=== PATIENT | male | born 1955 | race Caucasian/White ===

== ENCOUNTER 2018-10-22 09:12 | Emergency (ER) | payer OTHER ==
--- NOTE | 2018-10-22 09:22 | EDPHY ---
H & P Stated Complaint: Sudden L testicle/LLQ/L flank pn 0400. Diarrhea s blood x1. Time Seen by Provider: 10/22/18 09:22 - Personal History Current Tetanus/Diphtheria Vaccine: Yes - Medical/Surgical History Hx Asthma: No Hx Chronic Respiratory Disease: No Hx Diabetes: Yes Hx Cardiac Disease: Yes Hx Renal Disease: No Hx Cirrhosis: No Hx Alcoholism: No Hx HIV/AIDS: No Hx Splenectomy or Spleen Trauma: No Other PMH: Cardiac trip bypass, NIDDM, tonsillectomy - Social History Smoking Status: Never smoked Constitutional: Initial Vital Signs Heart Rate 65 10/22/18 09:16 Respiratory Rate 18 10/22/18 09:16 Blood Pressure 148/89 H 10/22/18 09:16 O2 Sat (%) 96 10/22/18 09:16 O2 Delivery Mode Room Air Allergies/Adverse Reactions: No Known Allergies Allergy (Unverified 10/22/18 09:16) Home Medications: Medication Instructions Recorded Ondansetron Odt [Zofran Odt 4 mg 4 mg PO Q4 PRN #10 tab 10/22/18 (RX)] Tamsulosin HCl [Flomax 0.4 MG (*)] 0.4 mg PO DAILY #10 cap 10/22/18 oxyCODONE IR [Oxycodone Ir (*)] 5 - 10 mg PO Q6 PRN #20 tab 10/22/18 Medical Decision Making - Diagnostics Imaging Results: Imaging Impressions Abdomen/Pelvis CT 10/22/18 09:40 Impression: 1. Bilateral nephrolithiasis, with a 9 x 9 mm stone at the caudal left renal pelvis resulting in moderate obstructive uropathy. 2. Bibasilar bronchiectasis, left greater than right, with minimal subpleural fibrosis and some subsegmental atelectasis versus scar and/or mucous plugging in the left lower lobe. Follow-up CT reevaluation in 6 months is suggested. Attention: This CT examination is specifically designed to evaluate patients who are clinically suspected of having acute obstructive uropathy. This examination does not use radiographic contrast, and as such, provides only a limited evaluation of the abdomen, pelvis, and retroperitoneum. If there is further clinical suspicion for pathological conditions other than obstructive uropathy, a complete CT evaluation of the abdomen and pelvis utilizing intravenous, oral, and rectal contrast should be considered. Findings and recommendations were discussed with Sushil Leary MD at 10:39, on 10/22/2018. Imaging: Discussed imaging studies w/ call specialist Radiologist, I viewed and interpreted images myself ED Course/Re-evaluation: CHIEF COMPLAINT: Left flank pain HISTORY OF PRESENT ILLNESS: The patient is a 62 y/o male with a history of kidney stones, diabetes and a triple bypass complaining of left flank, abdomen, and testicular pain onset at 04:00, 5.5 hours ago. This pain woke him up from sleep and is worsening. This pain does feel similar to prior kidney stones. No fever, headache, body aches, lightheadedness, chest pain, heart palpitations, shortness of breath, cough, urinary complaints, numbness, paresthesias. REVIEW OF SYSTEMS: A comprehensive 10 system review of systems is otherwise negative aside from elements mentioned in the history of present illness and medical decision making. PHYSICAL EXAM: HR, BP, O2 Sat, RR. Temp noted General Appearance: Alert, well hydrated, appropriate, and non-toxic appearing. Head: Atraumatic without scalp tenderness or obvious injury Eyes: Pupils equal, round, reactive to light and accommodation, EOMI, no trauma , no injection. Ears: Clear bilaterally, no perforation, normal landmarks Nose: Atraumatic, no rhinorrhea, clear. Throat: There is no erythema or exudates, no lesions, normal tonsils, mucus membranes moist. Neck: Supple, 2+ carotid upstroke, nontender, no lymphadenopathy. Respiratory: No retractions, no distress, no wheezes, and no accessory muscle use. Lungs are clear to auscultation bilaterally. Cardiovascular: Regular rate and rhythm, no murmurs, rubs, or gallops. Bilateral carotid, radial, dorsalis pedis, and posterior tibial pulses intact. Good capillary refill all extremities. Gastrointestinal: Abdomen is soft, nontender, non-distended, no masses, no rebound, no guarding, no peritoneal signs. Back: Left CVA tenderness to palpation. Musculoskeletal: Normal active ROM of all extremities, atraumatic. Neurological: Alert, appropriate, and interactive. The patient has normal DTRs and non-focal cranial nerves, motor, sensory, and cerebellar exam. Skin: No rashes, good turgor, no nodules on palpation. Past medical history: NIDDM, kidney stone Past surgical history: Cardiac triple bypass and tonsillectomy Family history: Denies Social history: Lives in [place], , self-employed DIAGNOSTICS/PROCEDURES/CRITICAL CARE TIME: Abdominopelvic CT: 9x9mm left kidney stone in distal third of the ureter. DIFFERENTIAL DIAGNOSIS: The differential diagnosis for the patient's flank pain included but was not limited to musculoskeletal causes, kidney stone, pyelonephritis, shingles, diverticulitis, appendicitis, and aortic aneurysm. MEDICAL DECISION MAKING: The patient is a 62 y/o male with a history of kidney stones, diabetes and a triple bypass presenting with left flank, abdomen, and testicular pain onset at 04:00, 5.5 hours ago. On exam he has left CVA tenderness to palpation. Labs and abdominopelvic CT ordered; 1L IV NS, 30mg IV Toradol, 1mg IV Dilaudid, 4mg IV Zofran, and 0.4mg PO Flomax administered. 1035: I reviewed patient's UA which reveals hematuria without signs of infection. Imaging studies still pending. 1040: I spoke with Dr. Platt, radiologist, regarding patient's abdominopelvic CT which reveals a 9x9mm left kidney stone. I will page urology. 1048: I consulted with Dr. Ovalles, urologist, regarding patient. Dr. Ovalles recommends discharging the patient and having him follow up as an outpatient. 1055: Reassessed patient and discussed imaging and laboratory studies as well as my consultation with Dr. Ovalles. I have advised him to take Flomax, OxyIR and Zofran for his symptoms. Return precautions provided; patient is comfortable with this plan. - Data Points Laboratory Results: Laboratory Results 10/22/18 09:31 10/22/18 09:31 10/22/18 10/22/18 10/22/18 10:05 09:31 09:31 WBC 6.03 10^3/uL 10^3/uL (3.80-9.50) RBC 4.58 10^6/uL 10^6/uL (4.40-6.38) Hgb 14.8 g/dL g/dL (13.7-17.5) Hct 42.6 % % (40.0-51.0) MCV 93.0 fL fL (81.5-99.8) MCH 32.3 pg pg (27.9-34.1) MCHC 34.7 g/dL g/dL (32.4-36.7) RDW 12.4 % % (11.5-15.2) Plt Count 140 10^3/uL L 10^3/uL (150-400) MPV 11.1 fL fL (8.7-11.7) Neut % (Auto) 45.7 % % (39.3-74.2) Lymph % (Auto) 44.9 % % (15.0-45.0) [place] % (Auto) 6.1 % % (4.5-13.0) Eos % (Auto) 2.5 % % (0.6-7.6) Baso % (Auto) 0.5 % % (0.3-1.7) Nucleat RBC Rel Count 0.0 % % (0.0-0.2) Absolute Neuts (auto) 2.75 10^3/uL 10^3/uL (1.70-6.50) Absolute Lymphs (auto) 2.71 10^3/uL 10^3/uL (1.00-3.00) Absolute Monos (auto) 0.37 10^3/uL 10^3/uL (0.30-0.80) Absolute Eos (auto) 0.15 10^3/uL 10^3/uL (0.03-0.40) Absolute Basos (auto) 0.03 10^3/uL 10^3/uL (0.02-0.10) Absolute Nucleated RBC 0.00 10^3/uL 10^3/uL (0-0.01) Immature Gran % 0.3 % % (0.0-1.1) Immature Gran # 0.02 10^3/uL 10^3/uL (0.00-0.10) Sodium 138 mEq/L mEq/L (135-145) Potassium 4.1 mEq/L mEq/L (3.5-5.2) Chloride 102 mEq/L mEq/L (97-110) Carbon Dioxide 26 mEq/l mEq/l (22-31) Anion Gap 10 mEq/L mEq/L (6-14) BUN 16 mg/dL mg/dL (7-23) Creatinine 1.0 mg/dL mg/dL (0.7-1.3) Estimated GFR > 60 Glucose 204 mg/dL H mg/dL (70-100) Calcium 9.7 mg/dL mg/dL (8.5-10.4) Urine Color [place] Urine Appearance MODERATELY TURBID Urine pH 5.0 (5.0-7.5) Ur Specific [place] 1.025 (1.002-1.030) Urine Protein 2+ H (NEGATIVE) Urine Ketones NEGATIVE (NEGATIVE) Urine Blood 3+ H (NEGATIVE) Urine Nitrate NEGATIVE (NEGATIVE) Urine Bilirubin NEGATIVE (NEGATIVE) Urine Urobilinogen 2.0 EU H EU (0.2-1.0) Ur Leukocyte Esterase NEGATIVE (NEGATIVE) Urine RBC 50-182 /hpf H /hpf (0-3) Urine WBC 10-15 /hpf H /hpf (0-3) Ur Epithelial Cells TRACE /lpf /lpf (NONE-1+) Urine Bacteria 1+ /hpf H /hpf (NONE SEEN) Hyaline Casts 1-5 /lpf /lpf (0-1) Urine Mucus 4+ /lpf H /lpf (NONE-1+) Urine Glucose NEGATIVE (NEGATIVE) Medications Given: Discontinued Medications Hydromorphone HCl (Dilaudid) 1 mg IVP EDNOW ONE Stop: 10/22/18 09:42 Last Admin: 10/22/18 10:17 Dose: 1 mg Sodium Chloride (Ns) 1,000 mls @ 0 mls/hr IV ONCE ONE; Wide Open PRN Reason: Protocol Stop: 10/22/18 09:41 Last Admin: 10/22/18 10:18 Dose: 1,000 mls Ketorolac Tromethamine (Toradol) 30 mg IVP EDNOW ONE Stop: 10/22/18 09:41 Last Admin: 10/22/18 09:59 Dose: 30 mg Ondansetron HCl (Zofran) 4 mg IVP EDNOW ONE Stop: 10/22/18 09:41 Last Admin: 10/22/18 10:00 Dose: 4 mg Tamsulosin HCl (Flomax) 0.4 mg PO EDNOW ONE Stop: 10/22/18 09:45 Last Admin: 10/22/18 10:02 Dose: 0.4 mg Departure - Departure Disposition: Home, Routine, Self-Care Clinical Impression: Kidney stone on left side Condition: Good Instructions: Kidney Stones (ED), How to Strain Your Urine (ED) Additional Instructions: 1. Take Zofran, OxyIR, and Flomax as prescribed. 2. Followup with your urologist within one week. 3. Return to the emergency apartment for fever, severe pain, inability to urinate or other concerns. 4. Strain urine to try and catch the kidney stone and bring this to the urology appointment. Referrals: Sarah Ewing MD [Primary Care Provider] - As per Instructions Aric Ovalles MD [Medical Doctor] - As per Instructions Prescriptions: Ondansetron Odt [Zofran Odt 4 mg (RX)] 4 mg PO Q4 PRN #10 tab PRN Reason: Nausea/Vomiting, Use 1st oxyCODONE IR [Oxycodone Ir (*)] 5 - 10 mg PO Q6 PRN #20 tab PRN Reason: Pain, Severe Tamsulosin HCl [Flomax 0.4 MG (*)] 0.4 mg PO DAILY #10 cap Report Scribed for: Sushil Leary Report Scribed by: Brittaney Vaz Date of Report: 10/22/18 Time of Report: 09:25
[2018-10-22] MEDS ORDERED: ONDANSETRON 4 MG/2 ML VIAL IVP ONE (09:40)
[2018-10-22] MEDS ORDERED: KETOROLAC 30 MG/1 ML SDV IVP ONE (09:40)
[2018-10-22] MEDS ORDERED: NS 1,000 ML IV ONE (09:40)
[2018-10-22] MEDS ORDERED: HYDROmorphONE/DILAUDID 2 MG/ML INJ IVP ONE (09:41)
[2018-10-22] MEDS ORDERED: TAMSULOSIN HCL 0.4 MG CAP PO ONE (09:44)
[2018-10-22] MEDS ORDERED: HYDROmorphONE/DILAUDID 1 MG/ML INJ ONE (09:52)
[2018-10-22 10:08] LABS: PLATELET COUNT 140 10^3/uL (150-400)
[2018-10-22 11:22] VITALS: BP 125/75
== END 2018-10-22 11:22 | disposition home or self-care (01) ==
DX: N20.0 Calculus of kidney (principal); E86.9 Volume depletion, unspecified; Z87.442 Personal history of urinary calculi; E11.9 Type 2 diabetes mellitus without complications; Z95.5 Presence of coronary angioplasty implant and graft
CPT/HCPCS: 96374; J1170; J1885; J2405

== ENCOUNTER 2018-10-25 13:49 | Observation (INO) | payer OTHER ==
[2018-10-25] MEDS ORDERED: NS 1,000 ML IV ONE (13:57)
--- NOTE | 2018-10-25 13:57 | EDPHY ---
H & P Stated Complaint: left flank pain Time Seen by Provider: 10/25/18 13:57 HPI/ROS: HPI CHIEF COMPLAINT: Worsening left flank pain. Nausea. HISTORY OF PRESENT ILLNESS: Patient very pleasant 62-year-old male, recently in the emergency room with left flank pain. Patient reports that he was seen here 2 days ago and diagnosed with a kidney stone in his left kidney. States that he had at period of time that he was pain-free however today woke up with worsening left flank pain associated nausea. He took oxycodone at home as well as Flomax however this did not help. He arrives to emergency room complaining of 10/10 left flank pain. Associated nausea but no vomiting. Patient denies any chest pain or shortness of breath. Denies fever. I was able to review the patient's CT scan recently shows a rather large left- sided kidney stone. Past Medical History: Significant medical history for coronary artery disease, [id number] diabetic. Past Surgical History: CABG Social History: Denies drugs alcohol tobacco. Family History: Noncontributory ROS REVIEW OF SYSTEMS: 10 Systems were reviewed and negative with the exception of the elements mentioned in the history of present illness. Exam Constitutional triage nursing summary reviewed, vital signs reviewed, awake/ alert. Eyes normal conjunctivae and sclera, EOMI, PERRLA. HENT normal inspection, atraumatic, moist mucus membranes, no epistaxis, neck supple/ no meningismus, no raccoon eyes. Respiratory clear to auscultation bilaterally, normal breath sounds, no respiratory distress, no wheezing. Cardiovascular rate normal, regular rhythm, no murmur, no edema, distal pulses normal. Gastrointestinal soft, non-tender, no rebound, no guarding, normal bowel sounds, no distension, no pulsatile mass. Genitourinary no CVA tenderness. Musculoskeletal no midline vertebral tenderness, full range of motion, no calf swelling, no tenderness of extremities, no meningismus, good pulses, neurovascularly intact. Skin pink, warm, & dry, no rash, skin atraumatic. Neurologic awake, alert and oriented x 3, AAOx3, moves all 4 extremities equally, motor intact, sensory intact, CN II-XII intact, normal cerebellar, normal vision, normal speech. Psychiatric normal mood/affect. Heme/Lymph/Immune no lymphadenopathy. Differential Diagnosis: Differential diagnosis includes but is not limited to and in no particular order: Bowel obstruction, appendicitis, gallbladder disease, diverticulitis, colitis, enteritis, perforated viscus, gastritis, GERD , esophagitis, urinary tract infection, pyelonephritis, kidney stones Medical Decision Making: Plan for this patient IV establishment IV fluid bolus , IV Dilaudid 1 mg for pain control IV Zofran for nausea, basic labs, urinalysis review his old ER record and CT. Patient may need to be admitted to the hospital for pain control. Re-evaluation: Patient re-evaluated 1604 pain is well controlled now with IV Dilaudid however the patient has a 9 x 9 mm stone obstructing on the left side according to his CT scan a few days ago. Plan for patient hospital admission for pain control nausea control IV fluids. Also I will consult Urology. Urinalysis reviewed no signs of infection Creatinine normal. 1608: I have consult Urology. They will plan to see and evaluate the patient. Additionally consult the hospitalist service Dr. Valentin will see and eval/ admit patient. Source: Patient - Personal History Current Tetanus/Diphtheria Vaccine: Yes Current Tetanus Diphtheria and Acellular Pertussis (TDAP): Yes - Medical/Surgical History Hx Asthma: No Hx Chronic Respiratory Disease: No Hx Diabetes: Yes Hx Cardiac Disease: Yes Hx Renal Disease: No Hx Cirrhosis: No Hx Alcoholism: No Hx HIV/AIDS: No Hx Splenectomy or Spleen Trauma: No Other PMH: Cardiac trip bypass, NIDDM, tonsillectomy - Social History Smoking Status: Never smoked Constitutional: Initial Vital Signs Temperature (C) 37 C 10/25/18 13:53 Heart Rate 67 10/25/18 13:53 Blood Pressure 149/65 H 10/25/18 13:53 O2 Sat (%) 97 10/25/18 13:53 O2 Delivery Mode Nasal Cannula O2 (L/minute) 2 Allergies/Adverse Reactions: No Known Allergies Allergy (Verified 10/25/18 15:27) Home Medications: Medication Instructions Recorded Ondansetron Odt [Zofran Odt 4 mg 4 mg PO Q4 PRN #10 tab 10/22/18 (*)] Tamsulosin HCl [Flomax 0.4 MG (*)] 0.4 mg PO DAILY #10 cap 10/22/18 oxyCODONE IR [Oxycodone Ir (*)] 5 - 10 mg PO Q6 PRN #20 tab 10/22/18 Allopurinol [Allopurinol 300 MG 150 mg PO HS 10/25/18 (RX)] Aspirin [Aspirin 81mg (*)] 81 mg PO HS 10/25/18 Atorvastatin Calcium [Lipitor 40 40 mg PO HS 10/25/18 mg (*)] Carvedilol [Coreg (*)] 6.25 mg PO BIDMEAL 10/25/18 Lisinopril [Zestril 2.5 mg (*)] 2.5 mg PO DAILY 10/25/18 metFORMIN HCL [Glucophage 500 mg 500 mg PO BIDMEAL 10/25/18 (*)] Medical Decision Making - Data Points Laboratory Results: Laboratory Results 10/25/18 11:40 10/25/18 11:40 Medications Given: Discontinued Medications Acetaminophen (Tylenol) 650 mg PO Q4HRS PRN PRN Reason: Pain, Mild/Fever, Can Take PO Stop: 04/23/19 16:57 Last Admin: 10/26/18 08:12 Dose: 650 mg Allopurinol (Allopurinol) 150 mg PO HS [facility] Stop: 04/23/19 20:59 Last Admin: 10/25/18 21:14 Dose: 150 mg Aspirin (Aspirin) 81 mg PO HS [facility] Stop: 04/23/19 20:59 Last Admin: 10/25/18 21:15 Dose: 81 mg Atorvastatin Calcium (Lipitor) 40 mg PO HS [facility] Stop: 04/23/19 20:59 Last Admin: 10/25/18 21:15 Dose: 40 mg Carvedilol (Coreg) 6.25 mg PO BIDMEAL [facility] Stop: 04/23/19 17:59 Last Admin: 10/26/18 08:12 Dose: 6.25 mg Hydromorphone HCl (Dilaudid) 1 mg IVP EDNOW ONE Stop: 10/25/18 14:02 Last Admin: 10/25/18 14:13 Dose: 1 mg Hydromorphone HCl (Dilaudid) 0.2 - 0.4 mg IVP Q4HRS PRN PRN Reason: Pain, Breakthrough Stop: 11/04/18 16:57 Last Admin: 10/26/18 12:05 Dose: 0.4 mg Sodium Chloride (Ns) 1,000 mls @ 0 mls/hr IV EDNOW ONE; Wide Open PRN Reason: Protocol Stop: 10/25/18 13:58 Last Admin: 10/25/18 14:13 Dose: 1,000 mls Sodium Chloride (Ns) 1,000 mls @ 100 mls/hr IV CONT STEPHON Stop: 04/23/19 16:59 Last Admin: 10/25/18 21:15 Dose: 1,000 mls Cefazolin Sodium/Dextrose (Ancef) 100 mls @ 200 mls/hr IV ONCALL ONE PRN Reason: Protocol Stop: 10/26/18 14:27 Last Admin: 10/26/18 15:13 Dose: 100 mls Lactated Ringer's (Lr) 1,000 mls @ 0 mls/hr IV ONCE ONE PRN Reason: KVO Stop: 10/26/18 14:32 Last Admin: 10/26/18 14:49 Dose: 1,000 mls Insulin Human Lispro (Humalog Lispro) 0 unit SC TIDMEAL STEPHON PRN Reason: Protocol Stop: 04/23/19 17:59 Last Admin: 10/26/18 12:45 Dose: Not Given Iopamidol (Isovue-M 300) Confirm Administered Dose 15 ml .ROUTE .STK-MED ONE Stop: 10/26/18 14:47 Last Admin: 10/26/18 15:33 Dose: 15 ml Lisinopril (Zestril) 2.5 mg PO DAILY [facility] Stop: 04/24/19 08:59 Last Admin: 10/26/18 11:25 Dose: Not Given Ondansetron HCl (Zofran) 4 mg IVP EDNOW ONE Stop: 10/25/18 14:02 Last Admin: 10/25/18 14:13 Dose: 4 mg Tamsulosin HCl (Flomax) 0.4 mg PO DAILY [facility] Stop: 04/24/19 08:59 Last Admin: 10/26/18 08:12 Dose: 0.4 mg Departure - Departure Disposition: [facility] Clinical Impression: Flank pain, Kidney stone on left side Condition: Fair
[2018-10-25] MEDS ORDERED: ONDANSETRON 4 MG/2 ML VIAL IVP ONE (14:01)
[2018-10-25] MEDS ORDERED: HYDROmorphONE/DILAUDID 2 MG/ML INJ IVP ONE (14:01)
[2018-10-25 14:21] LABS: PLATELET COUNT 146 10^3/uL (150-400)
[2018-10-25] MEDS ORDERED: ONDANSETRON 4 MG/2 ML VIAL IVP PRN (16:58)
[2018-10-25] MEDS ORDERED: LORazepam 2 MG/ML INJ IVP PRN (16:58)
[2018-10-25] MEDS ORDERED: oxyCODONE IR 5 MG TAB PO PRN (16:58)
[2018-10-25] MEDS ORDERED: ONDANSETRON DISINTEGRATING 4 MG TAB PO PRN (16:58)
[2018-10-25] MEDS ORDERED: ACETAMINOPHEN 325 MG TAB PO PRN (16:58)
[2018-10-25] MEDS ORDERED: NS 1,000 ML IV SCH (17:00)
--- NOTE | 2018-10-25 17:12 | PDGENHP ---
History and Physical - Chief Complaint left sided pain - History of Present Illness 62yo M with history of diabetes, CAD s/p CABG w/ICM, remote kidney stone presents with left sided pain. Symptoms initially started 3 days ago with vague cramping sensation in LLQ/left groin. No urinary symptoms. Came to ED due to the pain. Non-contrasted abdominal CT at that time showed 9x9mm stone at the left renal pelvis resulting in moderate obstructive uropathy. He was started on flomax and discharged with oxycodone and zofran. His symptoms persisted for a day after the ED visit but then had seemingly resolved yesterday. However, today these symptoms returned to he came back to the ED. He denies any fevers or chills. He has been straining his urine and hasn't seen the stone. No gross blood in urine. He received a dose of IV dilaudid in the ED and his symptoms are currently controlled. He is being admitted for pain control and urology consultation. Case discussed with ED physician Fan Walton. History Information - Allergies/Home Medication List Allergies/Adverse Reactions: No Known Allergies Allergy (Verified 10/25/18 15:27) Home Medications: Allopurinol [Allopurinol 300 MG (RX)] 150 mg PO HS 10/25/18 [Last Taken 10/24/18 ] Aspirin [Aspirin 81mg (*)] 81 mg PO HS 10/25/18 [Last Taken 10/24/18] Atorvastatin Calcium [Lipitor 40 mg (*)] 40 mg PO HS 10/25/18 [Last Taken ] Carvedilol [Coreg (*)] 6.25 mg PO BIDMEAL 10/25/18 [Last Taken 10/25/18 06:30] Lisinopril [Zestril 2.5 mg (*)] 2.5 mg PO DAILY 10/25/18 [Last Taken 10/25/18] metFORMIN HCL [Glucophage 500 mg (*)] 500 mg PO BIDMEAL 10/25/18 [Last Taken 06:30] I have personally reviewed and updated: family history, medical history, social history, surgical history - Past Medical History Additional medical history: CAD w/ICM (LVEF 43%), non-insulin dependent diabetes , gout, HLD, mitral regurgitation, kidney stone in 1987 - Surgical History Additional surgical history: coronary stent in 2005, CABG in 2016 - Family History Additional family history: diabetes, CVA, HTN - Social History Smoking Status: Never smoked Alcohol Use: Rarely Drug Use: None Additional social history: Lives with , who is at bedside. Has 2 children. Review of Systems Review of Systems: ROS: 10pt was reviewed & negative except for what was stated in HPI & below Physical Exam Physical Exam: Temp Pulse Resp BP Pulse Ox 37 C 68 16 158/80 H 97 10/25/18 13:53 10/25/18 15:25 10/25/18 15:25 10/25/18 15:25 10/25/18 15:25 Constitutional: no apparent distress, appears nourished, not in pain Eyes: PERRL, anicteric sclera, EOMI Ears, Nose, Mouth, Throat: moist mucous membranes, hearing normal, ears appear normal, no oral mucosal ulcers Cardiovascular: regular rate and rhythym, systolic murmur, No JVD, No edema Respiratory: no respiratory distress, no rales or rhonchi, clear to auscultation Gastrointestinal: normoactive bowel sounds, soft, non-tender abdomen, no palpable masses Genitourinary: no bladder fullness, no bladder tenderness Skin: warm, normal color, no rashes or abrasions, no fluctuance, no induration, No mottled Musculoskeletal: full muscle strength, no muscle tenderness, normal joint ROM, no joint effusions Neurologic: AAOx3 Psychiatric: interacting appropriately, not anxious, not encephalopathic, thought process linear Lab Data & Imaging Review 10/25/18 11:40 10/25/18 11:40 WBC 9.36 10^3/uL (3.80-9.50) 10/25/18 11:40 RBC 4.54 10^6/uL (4.40-6.38) 10/25/18 11:40 Hgb 15.0 g/dL (13.7-17.5) 10/25/18 11:40 Hct 42.2 % (40.0-51.0) 10/25/18 11:40 MCV 93.0 fL (81.5-99.8) 10/25/18 11:40 MCH 33.0 pg (27.9-34.1) 10/25/18 11:40 MCHC 35.5 g/dL (32.4-36.7) 10/25/18 11:40 RDW 12.2 % (11.5-15.2) 10/25/18 11:40 Plt Count 146 10^3/uL (150-400) L 10/25/18 11:40 MPV 10.7 fL (8.7-11.7) 10/25/18 11:40 Neut % (Auto) 59.9 % (39.3-74.2) 10/25/18 11:40 Lymph % (Auto) 31.7 % (15.0-45.0) 10/25/18 11:40 [place] % (Auto) 7.2 % (4.5-13.0) 10/25/18 11:40 Eos % (Auto) 0.7 % (0.6-7.6) 10/25/18 11:40 Baso % (Auto) 0.3 % (0.3-1.7) 10/25/18 11:40 Nucleat RBC Rel Count 0.0 % (0.0-0.2) 10/25/18 11:40 Absolute Neuts (auto) 5.60 10^3/uL (1.70-6.50) 10/25/18 11:40 Absolute Lymphs (auto) 2.97 10^3/uL (1.00-3.00) 10/25/18 11:40 Absolute Monos (auto) 0.67 10^3/uL (0.30-0.80) 10/25/18 11:40 Absolute Eos (auto) 0.07 10^3/uL (0.03-0.40) 10/25/18 11:40 Absolute Basos (auto) 0.03 10^3/uL (0.02-0.10) 10/25/18 11:40 Absolute Nucleated RBC 0.00 10^3/uL (0-0.01) 10/25/18 11:40 Immature Gran % 0.2 % (0.0-1.1) 10/25/18 11:40 Immature Gran # 0.02 10^3/uL (0.00-0.10) 10/25/18 11:40 Sodium 137 mEq/L (135-145) 10/25/18 11:40 Potassium 3.6 mEq/L (3.5-5.2) 10/25/18 11:40 Chloride 100 mEq/L (97-110) 10/25/18 11:40 Carbon Dioxide 26 mEq/l (22-31) 10/25/18 11:40 Anion Gap 11 mEq/L (6-14) 10/25/18 11:40 BUN 15 mg/dL (7-23) 10/25/18 11:40 Creatinine 1.1 mg/dL (0.7-1.3) 10/25/18 11:40 Estimated GFR > 60 10/25/18 11:40 Glucose 161 mg/dL (70-100) H 10/25/18 11:40 Calcium 9.9 mg/dL (8.5-10.4) 10/25/18 11:40 Urine Color YELLOW 10/25/18 15:25 Urine Appearance CLEAR 10/25/18 15:25 Urine pH 5.0 (5.0-7.5) 10/25/18 15:25 Ur Specific [place] 1.015 (1.002-1.030) 10/25/18 15:25 Urine Protein 1+ (NEGATIVE) H 10/25/18 15:25 Urine Ketones 1+ (NEGATIVE) H 10/25/18 15:25 Urine Blood 3+ (NEGATIVE) H 10/25/18 15:25 Urine Nitrate NEGATIVE (NEGATIVE) 10/25/18 15:25 Urine Bilirubin NEGATIVE (NEGATIVE) 10/25/18 15:25 Urine Urobilinogen NEGATIVE EU (0.2-1.0) 10/25/18 15:25 Ur Leukocyte Esterase NEGATIVE (NEGATIVE) 10/25/18 15:25 Urine RBC 50-182 /hpf (0-3) H 10/25/18 15:25 Urine WBC 1-3 /hpf (0-3) 10/25/18 15:25 Ur Epithelial Cells TRACE /lpf (NONE-1+) 10/25/18 15:25 Urine Mucus TRACE /lpf (NONE-1+) 10/25/18 15:25 Urine Glucose NEGATIVE (NEGATIVE) 10/25/18 15:25 Assessment & Plan Assessment: 62yo M with history of diabetes, CAD s/p CABG w/ICM presents with left flank pain related to large kidney stone. Plan: #Left sided nephrolithiasis: Measuring 9x9mm. Does not have signs of urosepsis or renal insufficiency. - IV dilaudid q2h PRN - IVF, anti-emetics - Flomax - Urology consulted in ED, planning on ureteroscopy and laser lithotripsy tomorrow PM #CAD s/p CABG in 2016: No recent anginal symptoms. - Continue aspirin, statin, carvedilol #Ischemic cardiomyopathy: He is compensated from a volume stand point. - Continue beta feroz, lisinopril #Bibasilar atelectasis/bronchiectasis: Noted on CT - Incentive spirometry; repeat CT in 6 months #Diabetes: A1c 7.7% - Holding metformin. ACHS glucose checks, SSI VTE ppx: SCDs Diet: cardiac, NPO at midnight Code: full Dispo: Admit under observation
[2018-10-25] MEDS ORDERED: D50W 25 GM/50 ML SYR IVP PRN (17:19)
--- NOTE | 2018-10-25 17:19 | PDCONSULT ---
Bodybuilder Note: Asked to see this 62 year old man by the emergency department with a new diagnosis of left renal stone with obstruction. The patient gives a history of a renal stone back in the 1980s that he thinks passed on its own. No prior procedures for stones. Started with left sided flank pain and left lower quadrant pain 3 days ago. Seen in the ED at that time and underwent a CT scan that showed a 9 x 9 mm obstructing left UPJ stone with mild hydro. Also found to have a 1mm and 2 mm stones in the left kidney, also with a 5 x 6 mm stone in the right lower pole. Says that he had dry heaves, but no nausea. Denies any fever. Had a relief of some of the pain and this then recurred today. Presented to the ED with excruciating pain that has now been resolved with IV pain meds. Past Med Hx- NIDDM, CAD, s/p CABG in remote past Meds and allergies- reviewed in chart No sig past family history ROS- reviewed in chart Exam Afebrile well appearing man in no distress Breathing comfortably abd- soft, tender in left flank and left lower quadrant - nml phallus, meatus, testes Labs WBC 9.3 U/A- 3+ RBC, neg nitrite, neg WBC Imp Left UPJ stone 9x9 mm causing obstruction Rec Admit to hospital for continued pain care Will try to add to the schedule for left ureteroscopy and laser lithotripsy for tomorrow afternoon OK to eat at present NPO after midnight EKG in ED Thanks for the consultation
[2018-10-25] MEDS: CARVEDILOL 6.25 MG TAB PO SCH (20:08)
[2018-10-25] MEDS: INSULIN LISPRO 100 UNIT/ML SC SCH (20:11)
[2018-10-25] MEDS ORDERED: ASPIRIN 81 MG CHEWABLE TAB PO SCH (21:00)
[2018-10-25] MEDS ORDERED: ALLOPURINOL 300 MG TAB PO SCH (21:00)
[2018-10-25] MEDS ORDERED: ATORVASTATIN CALCIUM 40 MG TAB PO SCH (21:00)
[2018-10-25] MEDS: HYDROmorphONE/DILAUDID 1 MG/ML INJ IVP PRN (21:19)
[2018-10-26 05:30] LABS: PLATELET COUNT 124 10^3/uL (150-400)
[2018-10-26] MEDS: INSULIN LISPRO 100 UNIT/ML SC SCH ×2 (08:01→12:45)
[2018-10-26] MEDS: CARVEDILOL 6.25 MG TAB PO SCH (08:12)
--- NOTE | 2018-10-26 08:52 | ASMTCMCOM ---
CM Note CM Note Notes: Chart Reviewed. Pt is a 62 year old admitted with worsening nausea and left flank pain. Pt seen in the ER 2 days ago and Dx with left Kidney stone. Urology Consulted 10/25 and Pt is scheduled for a Ureteroscopy & Laser Lithotripsy this afternoon 10/26. Hx of CAD, CABG, DM. CM available for needs. PLAN:Home with [facility] when medically cleared Date Signed: 10/26/2018 08:51 AM Electronically Signed By:Taylor Montelongo
[2018-10-26] MEDS ORDERED: LISINOPRIL 2.5 MG TAB PO SCH (09:00)
[2018-10-26] MEDS ORDERED: TAMSULOSIN HCL 0.4 MG CAP PO SCH (09:00)
[2018-10-26] MEDS: HYDROmorphONE/DILAUDID 1 MG/ML INJ IVP PRN (12:05)
[2018-10-26] MEDS ORDERED: ceFAZolin 2 GM/DEXTROSE 100 ML IV ONE (13:58)
--- NOTE | 2018-10-26 14:00 | SOAPPROG ---
SOAP Progress Note Assessment/Plan: Assessment: Left renal stone left flank pain Plan: to go to OR today for left ureteroscopy, laser lithotripsy and stent placement 10/26/18 13:58 Subjective: Doing relatively well still having occasional pain requiring IV pain meds no fevers or nausea Objective: Vital Signs Temp Pulse Resp BP Pulse Ox 36.5 C 53 L 16 127/77 H 90 L 10/26/18 11:24 10/26/18 11:24 10/26/18 11:24 10/26/18 11:25 10/26/18 11:24 Laboratory Results 10/26/18 04:20 10/26/18 04:20 10/25/18 10/26/18 10/27/18 05:59 05:59 05:59 Intake Total 2400 Output Total 1200 250 Balance 1200 -250 - Pending Discharge Pending Discharge Within 24 Hours: Yes Pending Discharge Date: 10/27/18 Pending Discharge Time: 11:00 Physical Exam - Physical Exam General Appearance: alert, no apparent distress Abdomen: soft ICD10 Worksheet Patient Problems: Problems Problem Status Onset Flank pain Acute
--- NOTE | 2018-10-26 14:01 | PDHPUP ---
History & Physical Update H&P update statement: This history and physical update is based on an assessment of the patient which was completed after admission or registration (within 24 hours), but prior to the surgery/procedure. H&P update: H&P reviewed & patient examined, no change in patient's condition since H&P completed
[2018-10-26] MEDS ORDERED: LR 1,000 ML IV ONE (14:31)
[2018-10-26] MEDS ORDERED: IOPAMIDOL (ISOVUE-M 300) 15 ML VIAL ONE (14:46)
--- NOTE | 2018-10-26 15:06 | PDANEPAE ---
ANE History of Present Illness 62 yo for ureteroscopy ANE Past Medical History - Cardiovascular History Hx Hypertension: Yes Hx Arrhythmias: No Hx Chest Pain: Yes Hx Coronary Artery / Peripheral Vascular Disease: Yes Hx CHF / Valvular Disease: Yes Hx Palpitations: No Cardiovascular History Comment: s/p cabg, ef 43% - Pulmonary History Hx COPD: No Hx Asthma/Reactive Airway Disease: No Hx Recent Upper Respiratory Infection: No Hx Oxygen in Use at Home: No Hx Sleep Apnea: Yes Sleep Apnea Screening Result - Last Documented: Negative - Endocrine History Hx Diabetes: Yes - Chronic Pain History Chronic Pain: No ANE Review of Systems Review of Systems: - Exercise capacity METS (RN): 4 METS ANE Patient History - Allergies Allergies/Adverse Reactions: No Known Allergies Allergy (Verified 10/25/18 15:27) - Home Medications Home medications: home medication list seen and reviewed Home Medications: Allopurinol [Allopurinol 300 MG (RX)] 150 mg PO HS 10/25/18 [Last Taken 10/24/18 ] Aspirin [Aspirin 81mg (*)] 81 mg PO HS 10/25/18 [Last Taken 10/24/18] Atorvastatin Calcium [Lipitor 40 mg (*)] 40 mg PO HS 10/25/18 [Last Taken ] Carvedilol [Coreg (*)] 6.25 mg PO BIDMEAL 10/25/18 [Last Taken 10/25/18 06:30] Lisinopril [Zestril 2.5 mg (*)] 2.5 mg PO DAILY 10/25/18 [Last Taken 10/25/18] metFORMIN HCL [Glucophage 500 mg (*)] 500 mg PO BIDMEAL 10/25/18 [Last Taken 06:30] - NPO status NPO Status: no food or drink >8 hours NPO Since - Liquids (Date): 10/25/18 NPO Since - Liquids (Time): 23:59 NPO Since - Solids (Date): 10/25/18 NPO Since - Solids (Time): 23:59 - Smoking Hx Smoking Status: Never smoked - Alcohol Use Alcohol Use: Rarely ANE Labs/Vital Signs - Labs Result Diagrams: 10/26/18 04:20 10/26/18 04:20 - Vital Signs Blood Pressure: 144/76 Heart Rate: 70 Respiratory Rate: 16 O2 Sat (%): 94 Height: 6 ft 3 in Weight: 89.811 kg ANE Physical Exam - Airway Neck exam: FROM Mallampati Score: Class 2 Mouth exam: normal dental/mouth exam - Pulmonary Pulmonary: no respiratory distress - Cardiovascular Cardiovascular: regular rate and rhythym - ASA Status ASA Status: III ANE Anesthesia Plan Anesthesia Plan: GA w LMA
[2018-10-26] MEDS ORDERED: PROPOFOL/EMULSION 500 MG/50 ML BOTTLE IV ONE (15:12)
[2018-10-26] MEDS ORDERED: fentaNYL 100 MCG/2 ML INJ ONE (15:12)
--- NOTE | 2018-10-26 15:50 | HOSPPROG ---
Hospitalist Progress Note Assessment/Plan: 62yo M with history of diabetes, CAD s/p CABG w/ICM presents with left flank pain related to large kidney stone. Plan: #Left sided nephrolithiasis: Measuring 9x9mm. Does not have signs of urosepsis or renal insufficiency. - IV dilaudid q2h PRN - IVF, anti-emetics - Flomax - Urology consulted, planning on ureteroscopy and laser lithotripsy today #CAD s/p CABG in 2016: No recent anginal symptoms. - Continue aspirin, statin, carvedilol #Ischemic cardiomyopathy: He is compensated from a volume stand point. - Continue beta feroz, lisinopril #Bibasilar atelectasis/bronchiectasis: Noted on CT - Incentive spirometry; repeat CT in 6 months #Diabetes: A1c 7.7% - Holding metformin. ACHS glucose checks, SSI VTE ppx: SCDs Diet: cardiac, NPO at midnight Code: full Dispo: Pending clinical course Subjective: Patient reports no pain this AM Objective: Vital Signs Temp Pulse Resp BP Pulse Ox 36.5 C 70 16 144/76 H 94 10/26/18 14:40 10/26/18 15:06 10/26/18 15:06 10/26/18 15:06 10/26/18 15:06 Laboratory Results 10/26/18 04:20 10/26/18 04:20 10/25/18 10/26/18 10/27/18 05:59 05:59 05:59 Intake Total 2400 Output Total 1200 250 Balance 1200 -250 - Physical Exam Constitutional: no apparent distress Eyes: PERRL Ears, Nose, Mouth, Throat: moist mucous membranes Cardiovascular: regular rate and rhythym Respiratory: no respiratory distress Gastrointestinal: normoactive bowel sounds Genitourinary: no bladder fullness Skin: warm Musculoskeletal: full muscle strength Neurologic: AAOx3 Psychiatric: interacting appropriately ICD10 Worksheet Patient Problems: Problems Problem Status Onset Flank pain Acute
[2018-10-26] MEDS ORDERED: ONDANSETRON 4 MG/2 ML VIAL IVP PRN (15:57)
[2018-10-26] MEDS ORDERED: NALOXONE HCL 0.4 MG/ML INJ IVP PRN (15:57)
[2018-10-26] MEDS ORDERED: fentaNYL 100 MCG/2 ML INJ IVP PRN (15:57)
--- NOTE | 2018-10-26 16:16 | POSTOPPROG ---
Post Op Note Date of Operation: 10/26/18 Surgeon: Fan Jewell Anesthesia: LMA Pre-op Diagnosis: left UPJ stone Post-op Diagnosis: same, meatal stenosis Indication: relieve obstruction of left kidney Procedure: Dilation meatal stenosis,cysto,left ureteroscopy,laser lithotripsy, stent Findings: meatal stricture, left upj stone Inf/Abcess present in the surg proc area at time of surgery?: No EBL: Minimal Complications: none
--- NOTE | 2018-10-26 16:22 | POSTANESTH ---
Post Anesthetic Evaluation Cardiovascular Status: Normal, Stable Respiratory Status: Normal, Stable Level of Consciousness/Mental Status: Can Participate in Eval Pain Control: Adequate, Prn Tx Ordered Nausea/Vomiting Control: Adequate, Prn Tx Ordered Complications Possibly Related to Anesthesia: None Noted
--- NOTE | 2018-10-26 16:38 | GOP ---
[f rep st] OPERATIVE REPORT DATE OF OPERATION: 10/26/2018 SURGEON: Fan Jewell MD ANESTHESIA: General. PREOPERATIVE DIAGNOSIS: Left ureteropelvic junction stone. POSTOPERATIVE DIAGNOSIS: Left ureteropelvic junction stone with meatal stenosis. PROCEDURE PERFORMED: Dilation of meatal stenosis, cystoscopy, left ureteroscopy, laser lithotripsy, stent placement. FINDINGS: INDICATIONS: This is a man with an obstructing left UPJ stone. DESCRIPTION OF PROCEDURE: Consent obtained. Patient was brought in the operating room. Once genera l anesthesia was obtained, a automatic clipper-out was performed. He was put in lithotomy position, prepped and draped in normal sterile fashion. The scope could not be passed into the meatus because of the s tricture. This was dilated with Bubba sounds to 26 Tristanian. Once this was done, a 22-Tristanian rigi d scope was passed into the bladder under direct vision. The rest of the urethra and the prostate we re normal. The bladder was also normal to visualization. There were no bladder lesions. The ureter al orifices were in the normal location with normal configuration. A 0.035 Sensor wire was passed in to the left ureteral orifice and followed fluoroscopically up to the renal pelvis. A semirigid urete roscope was then passed into the ureteral orifice and followed up to the UPJ where the stone was iden tified. A 365 micron holmium laser fiber was then utilized to break the stone into small fragments. Attempts were made to basket pieces, but they were too small for the basket. They were therefore ju st left in place. The ureter was inspected as the ureteroscope was removed, and there were no stones within the ureter. A 6-Tristanian by 24 cm stent was then passed over the guidewire. It was seen to co il fluoroscopically in the renal pelvis and cystoscopically in the bladder. The bladder was drained. Patient was transferred to the recovery room in good condition. /[id number]/MODL
[2018-10-26 16:55] VITALS: BP 120/81
== END 2018-10-26 19:05 | disposition home or self-care (01) ==
LOC: F1N 18:38
PROVIDERS: ADMIT Internal Medicine; ATTEND Internal Medicine
PROC: 0T778DZ Dilation of Left Ureter with Intraluminal Device, Via Natural or Artificial Opening Endoscopic (ICD-10-PCS; principal; 2018-10-25)
PROC: BT1F1ZZ Fluoroscopy of Left Kidney, Ureter and Bladder using Low Osmolar Contrast (ICD-10-PCS; principal; 2018-10-25)
PROC: 0TF78ZZ Fragmentation in Left Ureter, Via Natural or Artificial Opening Endoscopic (ICD-10-PCS; principal; 2018-10-25)
PROC: 0T7D8ZZ Dilation of Urethra, Via Natural or Artificial Opening Endoscopic (ICD-10-PCS; principal; 2018-10-25)
DX: N20.0 Calculus of kidney (principal); Q64.33 Congenital stricture of urinary meatus; E11.9 Type 2 diabetes mellitus without complications; I25.10 Atherosclerotic heart disease of native coronary artery without angina pectoris; I25.5 Ischemic cardiomyopathy; Z95.1 Presence of aortocoronary bypass graft; Z95.5 Presence of coronary angioplasty implant and graft; Z79.84 Long term (current) use of oral hypoglycemic drugs
CPT/HCPCS: 52356; 76000; 96361; 96374; 96375; 96376; 99285; C1769; G0378; C2625; J0690; J1170; J2405; J2704; J3010; Q9967

== ENCOUNTER 2018-12-06 06:59 | Emergency (ER) | payer OTHER ==
[2018-12-06] MEDS ORDERED: ONDANSETRON 4 MG/2 ML VIAL IVP ONE (07:18)
[2018-12-06] MEDS ORDERED: NS 1,000 ML IV ONE (07:18)
[2018-12-06] MEDS ORDERED: HYDROmorphONE/DILAUDID 2 MG/ML INJ IVP ONE (07:18)
[2018-12-06] MEDS ORDERED: KETOROLAC 30 MG/1 ML SDV IVP ONE (07:18)
--- NOTE | 2018-12-06 07:24 | EDPHY ---
H & P Stated Complaint: right flank pain since midnight Time Seen by Provider: 12/06/18 07:09 HPI/ROS: CHIEF COMPLAINT: Right flank pain HISTORY OF PRESENT ILLNESS: Patient is a 63-year-old man with a history of CABG in 2005, hypertension, type 2 diabetes who comes to the emergency department complaining of right-sided flank pain that radiates to his groin. He states that it is exactly similar to a kidney stone he passed in October. At that time it was on the left and he had to be admitted and had laser procedure done and stent placed. Since that time he has also had lithotripsy on the right. Around midnight he began having shooting fluctuating pain as well as nausea but no vomiting. No fevers. No recent illness. No chest pain or shortness of breath. Severity: Severe Modifying factors: Fluctuates spontaneously, no improvement with oxycodone at home REVIEW OF SYSTEMS: Constitutional: denies: chills, fever, recent illness, recent injury EENTM: denies: blurred vision, double vision, nose congestion Respiratory: denies: cough, shortness of breath Cardiac: denies: chest pain, irregular heart rate, lightheadedness, palpitations Gastrointestinal/Abdominal: See HPI denies: abdominal pain, diarrhea, vomiting , blood streaked stools Genitourinary: denies: dysuria, frequency, hematuria, pain Musculoskeletal: denies: joint pain, muscle pain Skin: denies: lesions, rash, jaundice, bruising Neurological: denies: headache, numbness, paresthesia, tingling, dizziness, weakness Hematologic/Lymphatic: denies: blood clots, easy bleeding, easy bruising Immunologic/allergic: denies: HIV/AIDS, transplant 10 systems reviewed and negative except as noted EXAM: GENERAL: Moderate distress. HEAD: Atraumatic, normocephalic. EYES: Pupils equal round and reactive to light, extraocular movements intact, sclera anicteric, conjunctiva are normal. ENT: TMs normal, nares patent, oropharynx clear without exudates. Moist mucous membranes. NECK: Normal range of motion, supple without lymphadenopathy or JVD. LUNGS: Breath sounds clear to auscultation bilaterally and equal. No wheezes rales or rhonchi. HEART: Regular rate and rhythm without murmurs, rubs or gallops. ABDOMEN: Soft, nontender, normoactive bowel sounds. No guarding, no rebound. No masses appreciated. BACK: No CVA tenderness, no spinal tenderness, step-offs or deformities EXTREMITIES: Normal range of motion, no pitting or edema. No clubbing or cyanosis. NEUROLOGICAL: Cranial nerves II through XII grossly intact. Normal speech, normal gait. 5/5 strength, normal movement in all extremities, normal sensation , normal reflexes PSYCH: Normal mood, normal affect. SKIN: Warm, dry, normal turgor, no visible rashes or lesions. Source: Patient Exam Limitations: No limitations - Personal History Current Tetanus/Diphtheria Vaccine: Yes Current Tetanus Diphtheria and Acellular Pertussis (TDAP): Yes - Medical/Surgical History Hx Asthma: No Hx Chronic Respiratory Disease: No Hx Diabetes: Yes Hx Cardiac Disease: Yes Hx Renal Disease: No Hx Cirrhosis: No Hx Alcoholism: No Hx HIV/AIDS: No Hx Splenectomy or Spleen Trauma: No Other PMH: Cardiac trip bypass, NIDDM, tonsillectomy, hx kidney stones, right hand - Family History Significant Family History: No pertinent family hx - Social History Smoking Status: Never smoked Alcohol Use: Sober Constitutional: Initial Vital Signs Temperature (C) 36.7 C 12/06/18 07:00 Heart Rate 84 12/06/18 07:00 Respiratory Rate 16 12/06/18 07:00 Blood Pressure 139/71 H 12/06/18 07:00 O2 Sat (%) 96 12/06/18 07:00 O2 Delivery Mode Room Air Allergies/Adverse Reactions: No Known Allergies Allergy (Verified 12/06/18 07:03) Home Medications: Medication Instructions Recorded Ondansetron Odt [Zofran Odt 4 mg 4 mg PO Q4 PRN #10 tab 10/22/18 (*)] Tamsulosin HCl [Flomax 0.4 MG (*)] 0.4 mg PO DAILY #10 cap 10/22/18 oxyCODONE IR [Oxycodone Ir (*)] 5 - 10 mg PO Q6 PRN #20 tab 10/22/18 Allopurinol [Allopurinol 300 MG 150 mg PO HS 10/25/18 (RX)] Aspirin [Aspirin 81mg (*)] 81 mg PO HS 10/25/18 Atorvastatin Calcium [Lipitor 40 40 mg PO HS 10/25/18 mg (*)] Carvedilol [Coreg (*)] 6.25 mg PO BIDMEAL 10/25/18 Lisinopril [Zestril 2.5 mg (*)] 2.5 mg PO DAILY 10/25/18 metFORMIN HCL [Glucophage 500 mg 500 mg PO BIDMEAL 10/25/18 (*)] Fish Oil 1,000 mg Softgel 12/06/18 Ondansetron Odt [Zofran Odt 4 mg 4 mg PO Q4 PRN #20 tab 12/06/18 (RX)] Medical Decision Making - Diagnostics Imaging Results: Imaging Impressions Abdomen/Pelvis CT 12/06/18 07:19 Impression: 1. 5 mm proximal right ureteral stone with mild obstructive uropathy. 2. Multiple nonobstructing left renal stones. 3. Stable left basilar opacity most likely representing atelectasis/scarring, for which follow up CT chest was previously recommended, to be performed in or after April 2019. 4. Additional findings as above. Findings discussed with Homero Acevedo on 12/06/2018 at 8:26 a.m. Attention: This CT examination is specifically designed to evaluate patients who are clinically suspected of having acute obstructive uropathy. This examination does not use radiographic contrast and provides only a limited evaluation of the abdomen, pelvis and retroperitoneum. If there is further clinical suspicion for pathological conditions other than obstructive uropathy, a complete CT evaluation of the abdomen and pelvis utilizing intravenous and enteric contrast should be considered. Imaging: Discussed imaging studies w/ call center director Radiologist ED Course/Re-evaluation: 8:[address] results. Patient feeling much better after medication. Will continue to observe. Discussed home medication regiment. He has prescriptions for oxycodone and Flomax at home. They are requesting a refill on Zofran. 9:15 a.m. the patient is feeling much better. He has not required any more medications. He is ready to go home. Discussed indications for returning. Discussed follow-up. Differential Diagnosis: Partial list of the Differential diagnosis considered include but were not limited to; kidney stone, urinary tract infection and although unlikely based on the history and physical exam, I also considered appendicitis, obstruction, ischemia. - Data Points Laboratory Results: Laboratory Results 12/06/18 07:18 12/06/18 07:18 12/06/18 12/06/18 12/06/18 07:25 07:18 07:18 WBC 8.72 10^3/uL 10^3/uL (3.80-9.50) RBC 4.92 10^6/uL 10^6/uL (4.40-6.38) Hgb 16.0 g/dL g/dL (13.7-17.5) POC Hgb 17.0 gm/dL gm/dL (13.7-17.5) Hct 46.2 % % (40.0-51.0) POC Hct 50 % % (40-51) MCV 93.9 fL fL (81.5-99.8) MCH 32.5 pg pg (27.9-34.1) MCHC 34.6 g/dL g/dL (32.4-36.7) RDW 12.7 % % (11.5-15.2) Plt Count 175 10^3/uL 10^3/uL (150-400) MPV 11.0 fL fL (8.7-11.7) Neut % (Auto) 66.4 % % (39.3-74.2) Lymph % (Auto) 28.8 % % (15.0-45.0) [place] % (Auto) 4.1 % L % (4.5-13.0) Eos % (Auto) 0.3 % L % (0.6-7.6) Baso % (Auto) 0.3 % % (0.3-1.7) Nucleat RBC Rel Count Not Reported Absolute Neuts (auto) 5.78 10^3/uL 10^3/uL (1.70-6.50) Absolute Lymphs (auto) 2.51 10^3/uL 10^3/uL (1.00-3.00) Absolute Monos (auto) 0.36 10^3/uL 10^3/uL (0.30-0.80) Absolute Eos (auto) 0.03 10^3/uL 10^3/uL (0.03-0.40) Absolute Basos (auto) 0.03 10^3/uL 10^3/uL (0.02-0.10) Absolute Nucleated RBC Not Reported Immature Gran % 0.1 % % (0.0-1.1) Immature Gran # 0.01 10^3/uL 10^3/uL (0.00-0.10) POC Sodium 137 mEq/L mEq/L (135-145) Sodium 136 mEq/L mEq/L (135-145) POC Potassium 4.4 mEq/L mEq/L (3.3-5.0) Potassium 4.7 mEq/L mEq/L (3.5-5.2) POC Chloride 100 mEq/L mEq/L (97-110) Chloride 99 mEq/L mEq/L (97-110) Carbon Dioxide 25 mEq/l mEq/l (22-31) POC Total CO2 25 mEq/L mEq/L (22-31) Anion Gap 12 mEq/L mEq/L (6-14) POC BUN 22 mg/dL mg/dL (7-23) BUN 22 mg/dL mg/dL (7-23) Creatinine 1.2 mg/dL mg/dL (0.7-1.3) POC Creatinine 1.2 mg/dL mg/dL (0.7-1.3) Estimated GFR > 60 Glucose 252 mg/dL H mg/dL (70-100) POC Glucose 250 mg/dL H mg/dL (70-100) Calcium 10.4 mg/dL mg/dL (8.5-10.4) Total Bilirubin 1.2 mg/dL mg/dL (0.1-1.4) Conjugated Bilirubin 0.2 mg/dL mg/dL (0.0-0.5) Unconjugated Bilirubin 1.0 mg/dL mg/dL (0.0-1.1) AST 38 IU/L IU/L (17-59) ALT 57 IU/L IU/L (21-72) Alkaline Phosphatase 103 IU/L IU/L (38-126) Total Protein 8.0 g/dL g/dL (6.3-8.2) Albumin 4.8 g/dL g/dL (3.5-5.0) Lipase 124 IU/L IU/L (23-300) Urine Color Urine Appearance Urine pH Ur Specific Mcintyre Urine Protein Urine Ketones Urine Blood Urine Nitrate Urine Bilirubin Urine Urobilinogen Ur Leukocyte Esterase Urine RBC Urine WBC Ur Epithelial Cells Amorphous Sediment Urine Bacteria Urine Mucus Urine Glucose 12/06/18 07:00 WBC RBC Hgb POC Hgb Hct POC Hct MCV MCH MCHC RDW Plt Count MPV Neut % (Auto) Lymph % (Auto) [place] % (Auto) Eos % (Auto) Baso % (Auto) Nucleat RBC Rel Count Absolute Neuts (auto) Absolute Lymphs (auto) Absolute Monos (auto) Absolute Eos (auto) Absolute Basos (auto) Absolute Nucleated RBC Immature Gran % Immature Gran # POC Sodium Sodium POC Potassium Potassium POC Chloride Chloride Carbon Dioxide POC Total CO2 Anion Gap POC BUN BUN Creatinine POC Creatinine Estimated GFR Glucose POC Glucose Calcium Total Bilirubin Conjugated Bilirubin Unconjugated Bilirubin AST ALT Alkaline Phosphatase Total Protein Albumin Lipase Urine Color YELLOW Urine Appearance MODERATELY TURBID Urine pH 5.0 (5.0-7.5) Ur Specific Mcintyre 1.023 (1.002-1.030) Urine Protein NEGATIVE (NEGATIVE) Urine Ketones 1+ H (NEGATIVE) Urine Blood 3+ H (NEGATIVE) Urine Nitrate NEGATIVE (NEGATIVE) Urine Bilirubin NEGATIVE (NEGATIVE) Urine Urobilinogen NEGATIVE EU EU (0.2-1.0) Ur Leukocyte Esterase NEGATIVE (NEGATIVE) Urine RBC 50-182 /hpf H /hpf (0-3) Urine WBC 1-3 /hpf /hpf (0-3) Ur Epithelial Cells TRACE /lpf /lpf (NONE-1+) Amorphous Sediment PRESENT /hpf /hpf (NONE-1+) Urine Bacteria TRACE /hpf H /hpf (NONE SEEN) Urine Mucus 1+ /lpf /lpf (NONE-1+) Urine Glucose 3+ H (NEGATIVE) Medications Given: Discontinued Medications Hydromorphone HCl (Dilaudid) 0.5 mg IVP EDNOW ONE Stop: 12/06/18 07:19 Last Admin: 12/06/18 07:36 Dose: 0.5 mg Sodium Chloride (Ns) 1,000 mls @ 0 mls/hr IV EDNOW ONE; Wide Open PRN Reason: Protocol Stop: 12/06/18 07:19 Last Admin: 12/06/18 07:36 Dose: 1,000 mls Ketorolac Tromethamine (Toradol) 15 mg IVP EDNOW ONE Stop: 12/06/18 07:19 Last Admin: 12/06/18 07:36 Dose: 15 mg Ondansetron HCl (Zofran) 4 mg IVP EDNOW ONE Stop: 12/06/18 07:19 Last Admin: 12/06/18 07:36 Dose: 4 mg Tamsulosin HCl (Flomax) 0.4 mg PO EDNOW ONE Stop: 12/06/18 08:29 Last Admin: 12/06/18 08:33 Dose: 0.4 mg Point of Care Test Results: Chemistry 12/06/18 07:25 POC Sodium 137 mEq/L mEq/L (135-145) POC Potassium 4.4 mEq/L mEq/L (3.3-5.0) POC Chloride 100 mEq/L mEq/L (97-110) POC Total CO2 25 mEq/L mEq/L (22-31) POC BUN 22 mg/dL mg/dL (7-23) POC Creatinine 1.2 mg/dL mg/dL (0.7-1.3) POC Glucose 250 mg/dL H mg/dL (70-100) ISTAT H&H 12/06/18 07:25 POC Hgb 17.0 gm/dL gm/dL (13.7-17.5) POC Hct 50 % % (40-51) Departure - Departure Disposition: Home, Routine, Self-Care Clinical Impression: Renal colic on right side, Kidney stone on left side Condition: Good Instructions: Kidney Stones (ED) Referrals: Sarah Ewing MD [Primary Care Provider] - As per Instructions Fan Jewell MD [Medical Doctor] - 3-4 days, if not improved Prescriptions: Ondansetron Odt [Zofran Odt 4 mg (RX)] 4 mg PO Q4 PRN #20 tab PRN Reason: Nausea & Vomiting
[2018-12-06 08:10] LABS: PLATELET COUNT 175 10^3/uL (150-400)
[2018-12-06] MEDS ORDERED: TAMSULOSIN HCL 0.4 MG CAP PO ONE (08:28)
[2018-12-06 08:36] VITALS: BP 115/60
== END 2018-12-06 09:30 | disposition home or self-care (01) ==
DX: N20.0 Calculus of kidney (principal); N23 Unspecified renal colic
CPT/HCPCS: 82435-PO; 82565-PO; 82947-PO; 84132-PO; 84295-PO; 84520-PO; 85014-ER; 96374; J1170; J1885; J2405

== ENCOUNTER → 2019-01-29 | Day surgery (SDC) | payer OTHER | END | disposition home or self-care (01) | LOC: FCATH 09:00 ==